=== PATIENT | male | born 1965 | race Caucasian/White ===

== ENCOUNTER → 2020-11-03 | Day surgery (SDC) | payer BC ==
[~2020-11-03] MED LIST: ACETAMINOPHEN/CODEINE 300MG - 30MG TAB ONE; BUPIVACAINE HCL 0.5% INJ 30 ML VIAL INJ ONE; DEXAMETHASONE SOD PHOS INJ 4 MG/ML VIAL ONE; FENTANYL CITRATE/PF 100MCG/2 ML INJ ONE; KETOROLAC TROMETHAMINE 30 MG/ML VIAL ONE; LIDOCAINE HCL 2% LOCAL INJ 5 ML SDV VIAL INJ ONE; LISINOPRIL10 MG PO; MIDAZOLAM HCL 2 MG/2 ML VIAL ONE; NEOSTIGMINE 1 MG/ML 10ML VIAL ONE; ONDANSETRON HCL INJ 2MG/ML 2ML 2 MG/ML VIAL ONE; POVIDONE IODINE 0.05% 0.05 % ML PO ONE; PROPOFOL IV EMULSION 10 MG/ML 20 ML VIAL ONE; SEVOFLURANE INHAL SOLN 250 ML PEN BTL ONE; SODIUM CHLORIDE 0.9% 50ML 100 ML ONE
== END | disposition home or self-care (01) ==
LOC: OR 08:43
PROVIDERS: ATTEND Podiatrist Foot & Ankle Surgery
DX: M72.2 Plantar fascial fibromatosis (principal); M77.31 Calcaneal spur, right foot; M21.6X1 Other acquired deformities of right foot; I10 Essential (primary) hypertension; R00.1 Bradycardia, unspecified; Z01.810 Encounter for preprocedural cardiovascular examination
CPT/HCPCS: 28104; 29893; 93005; J0690; J1100; J1885; J2001; J2250; J2405; J2704; J2710; J3010; Q4150; 76000